=== PATIENT | female | born 1985 | race Caucasian/White ===

== ENCOUNTER 2016-12-26 09:03 | Emergency (ER) | payer OTHER ==
[2016-12-26 09:04] VITALS: BMI 24.7
[2016-12-26 09:10] VITALS: O2SAT 99
[2016-12-26 09:41] LABS: RBC URINE 8 /hpf (0-3); URINE BILIRUBIN NEGATIVE (NEGATIVE); URINE BLOOD 2+ (NEGATIVE); URINE COLOR Yellow (YELLOW); URINE GLUCOSE (UA) NORMAL (Normal); URINE KETONE NEGATIVE (NEGATIVE); URINE LEUKOCYTE ESTERASE 2+ Leu/uL (Negative); URINE PROTEIN NEGATIVE (NEGATIVE); URINE UROBILINOGEN NORMAL mg/dL (0.2-1.0); WBC URINE 122 /hpf (0-5)
--- NOTE | 2016-12-26 09:55 | C.PDOC ---
History Of Present Illness 31 year old female presents to the ED with complaints of dysuria and urinary frequency associated with right sided back pain which began yesterday. Patient had an elective around 2 weeks ago, but notes she did not begin to experience discomfort until yesterday. Patient denies fever, chills, vaginal bleeding, vaginal discharge, abdominal pain. Time Seen by Provider: 12/26/16 09:15 Chief Complaint (Nursing): Female Genitourinary History Per: Patient History/Exam Limitations: no limitations Onset/Duration Of Symptoms: Other (2 week ) Current Symptoms Are (Timing): Still Present Quality Of Discomfort: "Pain" Associated Symptoms: denies: Fever, Chills Additional History Per: Patient Abnormal Vaginal Bleeding: No Past Medical History Reviewed: Historical Data, Nursing Documentation, Vital Signs Vital Signs: Last Vital Signs Temp 98.5 F 12/26/16 10:37 Pulse 87 12/26/16 10:37 Resp 16 12/26/16 10:37 BP 109/71 12/26/16 10:37 Pulse Ox 99 12/26/16 17:21 - Medical History PMH: No Chronic Diseases Surgical History: No Surg Hx - [facility] Procedures INJECT/INFUSE NEC (12/15/13) Family History: States: Unknown Family Hx - Social History Hx Alcohol Use: Yes Hx Substance Use: No - Immunization History Hx Tetanus Toxoid Vaccination: No Hx Influenza Vaccination: No Hx Pneumococcal Vaccination: No Review Of Systems Constitutional: Negative for: Fever, Chills Genitourinary: Positive for: Dysuria, Frequency. Negative for: Vaginal Bleeding Musculoskeletal: Positive for: Back Pain (right-sided ) Physical Exam - Physical Exam Appears: Non-toxic, No Acute Distress Skin: Normal Color, Warm, Dry Head: Atraumatic, Normacephalic Eye(s): bilateral: Normal Inspection, EOMI Oral Mucosa: Moist Neck: Supple Chest: Symmetrical, No Deformity, No Tenderness Cardiovascular: Rhythm Regular, No Murmur Respiratory: Normal Breath Sounds, No Rales, No Rhonchi, No Wheezing Gastrointestinal/Abdominal: Soft, Tenderness (suprapubic ), No Guarding, No Rebound Back: Paraspinal Tenderness (lumbar) Extremity: Normal ROM, Capillary Refill (less than 2 seconds ) Neurological/Psych: Oriented x3, Normal Speech, Normal Cognition Gait: Steady ED Course And Treatment O2 Sat by Pulse Oximetry: 99 (RA) Pulse Ox Interpretation: Normal Progress Note: UA ordered and reviewed. Ciproflaxin PO, Pyridium PO, Toradol IM ordered and reviewed. On reassessment, patient is resting comfortably, showing no signs of distress and reports an improvement in her symptoms. Patient is stable for discharge and is advised to follow up with her PMD within 2-5 days for further evaluation. Case discussed with Dr Malone, agreed upon plan and discharge. Reassessment Condition: Improved Disposition - Disposition Disposition: HOME/ ROUTINE Disposition Time: 10:13 Condition: STABLE Additional Instructions: Follow up with your primary medical doctor or clinic in 2-5 days for further evaluation. Take medications as prescribed. Return to the emergency department at any time if symptoms persist or worsen. Prescriptions: Ciprofloxacin HCl [Cipro] 500 mg PO BID #14 tab Phenazopyridine HCl [Pyridium] 100 mg PO TID #6 tablet Instructions: Urinary Tract Infection in Women (ED) Forms: [employer] [facility] (Jamaican) - Clinical Impression Clinical Impression: UTI (urinary tract infection) - PA / PRICING MANAGER / Resident Statement MD/DO has reviewed & agrees with the documentation as recorded. - Scribe Statement The provider has reviewed the documentation as recorded by the Scribe Daxa Carrasquillo All medical record entries made by the Lashay were at my direction and personally dictated by me. I have reviewed the chart and agree that the record accurately reflects my personal performance of the history, physical exam, medical decision making, and the department course for this patient. I have also personally directed, reviewed, and agree with the discharge instructions and disposition.
[2016-12-26 10:38] VITALS: BP 109/71; PULSE 87; RESP 16; TEMP 98.5
== END 2016-12-26 10:55 | disposition home or self-care (01) ==
LOC: C.ER 09:03
DX: N39.0 Urinary tract infection, site not specified (principal)